=== PATIENT | male | born 1940 | race American Indian/Alaskan Native ===

== ENCOUNTER 2017-01-24 21:13 | Emergency (ER) | payer MEDICARE ==
[2017-01-24 21:14] VITALS: BMI 33.9
[2017-01-24 21:28] VITALS: O2SAT 98
[2017-01-24] MEDS ORDERED: Naproxen 550 mg Tab PO STA (22:06)
[2017-01-24 22:07] LABS: RBC URINE 50 /hpf (0-3); URINE BACTERIA OCC (<OCC); URINE BILIRUBIN NEGATIVE (NEGATIVE); URINE COLOR Amber (YELLOW); URINE GLUCOSE (UA) NORMAL (Normal); URINE KETONE NEGATIVE (NEGATIVE); URINE LEUKOCYTE ESTERASE 3+ Leu/uL (Negative); URINE PROTEIN 2+ mg/dL (NEGATIVE); URINE UROBILINOGEN NORMAL mg/dL (0.2-1.0); WBC CLUMPS FEW /hpf; WBC URINE 2377 /hpf (0-5)
[2017-01-24 22:10] LABS: URINE BLOOD 2+ (NEGATIVE)
[2017-01-24] MEDS ORDERED: Naproxen 550 mg Tab PO ONE (22:11)
--- NOTE | 2017-01-24 23:13 | C.PDOC ---
History Of Present Illness 76 year old patient presents to the ED complaining of urinary retention since this afternoon. He feels a burning sensation in his urethra. Patient states a loja catheter was put in 3 weeks ago by his urologist, Dr. Rahman. He has an appointment to see Dr. Rahman later this week. Patient denies fever, abdominal pain, nausea or vomiting. Time Seen by Provider: 01/24/17 21:41 Chief Complaint (Nursing): Male Genitourinary History Per: Patient History/Exam Limitations: no limitations Onset/Duration Of Symptoms: Hrs (this afternoon) Current Symptoms Are (Timing): Still Present Severity: Mild Pain Scale Rating Of: 3 Quality Of Discomfort: Burning, "Pain" Alleviating Factors: None Recent travel outside of the [place]: No Past Medical History Reviewed: Historical Data, Nursing Documentation, Vital Signs Vital Signs: Last Vital Signs Temp 98.6 F 01/25/17 00:11 Pulse 90 01/25/17 00:11 Resp 20 01/25/17 00:11 BP 166/75 H 01/25/17 00:11 Pulse Ox 98 01/25/17 00:11 - Medical History PMH: Arthritis, HTN, Hypercholesterolemia Surgical History: Appendectomy - [facility] Procedures CONTRAST AORTOGRAM (03/30/07) CORONAR ARTERIOGR-2 CATH (03/30/07) ENDOSC POLYPECTOMY OF LG INTEST (11/04/13) LEFT HEART CARDIAC CATH (03/30/07) LT HEART ANGIOCARDIOGRAM (03/30/07) RADICAL EXCIS SKIN LES (05/16/13) Family History: States: No Known Family Hx - Social History Hx Alcohol Use: No Hx Substance Use: No - Immunization History Hx Influenza Vaccination: No Hx Pneumococcal Vaccination: No Review Of Systems Except As Marked, All Systems Reviewed And Found Negative. Constitutional: Negative for: Fever Gastrointestinal: Negative for: Nausea, Vomiting, Abdominal Pain Genitourinary: Positive for: Other (urinary retention) Physical Exam - Physical Exam Appears: Non-toxic, No Acute Distress, Other (uncomfortable) Skin: Warm, Dry Head: Atraumatic, Normacephalic Neck: Normal ROM, Supple Chest: Symmetrical Cardiovascular: Rhythm Regular Respiratory: Normal Breath Sounds, No Rales, No Rhonchi, No Wheezing Gastrointestinal/Abdominal: Soft, Tenderness (mild suprapubic), No Guarding, No Rebound Back: Normal Inspection, No CVA Tenderness Male Genital: Other (loja catheter in place. no erythema or discharge from penis. loja bag has about 300 mL of cloudy, yellow urine with small clots.) Extremity: Normal ROM Neurological/Psych: Oriented x3, Normal Speech, Normal Cognition ED Course And Treatment O2 Sat by Pulse Oximetry: 98 (room air) Pulse Ox Interpretation: Normal Progress Note: UA, UCX ordered. Patient given PO Naprosyn for pain. UA (+) for UTI, PO Cipro and Pyridium given. 11:25pm- Patient resting comfortably, however urine in loja bag is red tinged with clots. Will have nurse irrigate bladder manually to see if urine clears. Patient is advised to follow up with Dr. Rahman and continue to take antibiotics. Return if symptoms worsen. Reevaluation Time: 00:10 Reassessment Condition: Improved (Patient resting comfortably. After irrigation , urine now flowing clearly.) Disposition Counseled Patient/Family Regarding: Studies Performed, Diagnosis, Need For Followup, Rx Given - Disposition Referrals: Evelio Main DO [Doctor [facility]] - Pavan Rahamn MD [Staff Provider] - Disposition: HOME/ ROUTINE Disposition Time: 00:10 Condition: STABLE Additional Instructions: FOLLOW UP WITH DR RAHMAN IN 1-2 DAYS FOR FURTHER EVALUATION USE MEDICATIONS DIRECTED DRINK PLENTY OF FLUIDS RETURN TO ER IF YOU HAVE ANY CONCERNING SYMPTOMS Prescriptions: Ciprofloxacin [Cipro] 1 tab PO BID #14 tab Phenazopyridine [Pyridium] 100 mg PO TID #9 tab Instructions: Urinary Tract Infection in Men (ED), Acute Hematuria (ED) Print Language: URDU - POA Present On Arrival: None - Clinical Impression Clinical Impression: Urinary retention, UTI (urinary tract infection), Hematuria - Scribe Statement The provider has reviewed the documentation as recorded by the Scribe Lucrecia Geronimo Provider Attestation: All medical record entries made by the Scribe were at my direction and personally dictated by me. I have reviewed the chart and agree that the record accurately reflects my personal performance of the history, physical exam, medical decision making, and the department course for this patient. I have also personally directed, reviewed, and agree with the discharge instructions and disposition.
[2017-01-25 00:13] VITALS: BP 166/75; PULSE 90; RESP 20; TEMP 98.6
== END 2017-01-25 00:43 | disposition home or self-care (01) ==
LOC: C.ER 21:13
DX: T83.511A Infection and inflammatory reaction due to indwelling urethral catheter, initial encounter (principal); N39.0 Urinary tract infection, site not specified; B96.4 Proteus (mirabilis) (morganii) as the cause of diseases classified elsewhere; R31.9 Hematuria, unspecified; R33.9 Retention of urine, unspecified